=== PATIENT | male | born 1965 | race Hispanic/Latino ===

== ENCOUNTER 2024-12-17 06:13 | Day surgery (SDC) | payer MEDICARE ==
--- NOTE | 2024-12-16 11:59 | EKG ---
[facility] Test Date: 2024-12-16 Test Time: 12:54:30 Pat Name: ARUN GRIFFIN Department: [facility] Room: [facility] Gender: M Raise Drill Operator: [id number] : 1965 Requested By: ORION MARTINEZ Order Number: [id number] Reading MD: Carlos Vail Measurements Intervals [place] Rate: 64 P: 49 AR: 176 QRS: -4 QRSD: 96 T: 54 QT: 412 QTc: 425 Interpretive Statements Normal sinus rhythm No previous ECG available for comparison Electronically Signed On 12-17-2024 06:56:52 [employer]PER[employer]OR [employer]PER[employer] by Carlos Vail Please click the below link to view image of tracing.
[2024-12-16 12:05] LABS: BASOPHILS # (AUTO) 0.04 K/uL (0.00-0.20); BASOPHILS % (AUTO) 0.7 % (0.0-5.0); EOSINOPHILS # (AUTO) 0.13 K/uL (0.00-0.70); EOSINOPHILS % (AUTO) 2.2 % (0.0-8.0); IMMATURE GRANULOCYTE ABSOLUTE 0.01 K/uL (0-1); LYMPHOCYTES # (AUTO) 2.5 K/uL (1.0-4.8); LYMPHOCYTES % (AUTO) 42.6 % (21.0-51.0); MEAN CORPUSCULAR HEMOGLOBIN 31.6 pg (27.0-33.0); MEAN CORPUSCULAR HGB CONC 35.1 g/dL (32.0-36.0); MONOCYTES # (AUTO) 0.6 K/uL (0.1-1.0); MONOCYTES % (AUTO) 10.2 % (3.0-13.0); NEUTROPHILS # (AUTO) 2.6 K/uL (1.8-7.7); NEUTROPHILS % (AUTO) 44.1 % (40.0-77.0); PLATELET COUNT (AUTO) 262 K/uL (130-400); RED CELL DISTRIBUTION WIDTH 13.1 % (11.0-15.5); WHITE BLOOD COUNT (AUTO) 5.9 K/uL (4.8-10.8)
[2024-12-16 12:16] LABS: INR 0.97 (0.85-1.15); PROTHROMBIN TIME 10.9 SEC (9.6-11.6)
[2024-12-16 12:21] LABS: ALBUMIN 3.5 g/dL (3.5-5.0); BILIRUBIN,TOTAL 2.5 mg/dL (0.2-1.0); POTASSIUM 3.6 mmol/L (3.5-5.1); TOTAL PROTEIN, SERUM 7.8 g/dL (6.0-8.3)
[2024-12-16 12:48] VITALS: BP 110/66; PULSE 63; RESP 18; TEMP 97.7
[~2024-12-17] VITALS: Ht 167.6 cm; Wt 67.8 kg
[2024-12-17] VITALS (13 sets, daily range): BP systolic 105–143; BP diastolic 73–101; PULSE 65–87; RESP 15–20; TEMP 97.3–98
[2024-12-17] MEDS: LIDOCAINE HCL 1% 20 ML VIAL ONE
[2024-12-17] MEDS: BUPIvacaine/PF 0.25% 30ML VIAL IJ ONE
[~2024-12-17 06:13] MED LIST: ATAZ1TAB PO; ATOR10TA69 PO; EMTR1TAB23 PO; HYDR-4068 PO
[2024-12-17] MEDS: ceFAZolin SODIUM 2 GM VIAL ONE (07:05)
[2024-12-17] MEDS: LACTATED RINGERS 1000ML 1,000 ML IV ONE (07:05)
[2024-12-17] MEDS ORDERED: proPOFol 10 MG/ML 20ML VIAL IV ONE (07:40)
[2024-12-17] MEDS ORDERED: rocuRONium bROMide 10MG/1ML 5ML VL ONE (07:40)
[2024-12-17] MEDS ORDERED: MIDAZOLAM HCL 1 MG/ML 2ML VIAL ONE (07:40)
[2024-12-17] MEDS ORDERED: FENTanyl CITRate PF 50 MCG/1 ML 2ML VIAL ONE ×2 (07:40→08:32)
[2024-12-17] MEDS ORDERED: ondanSETRON 4MG INJ ONE (07:40)
[2024-12-17] MEDS ORDERED: SUCCINYLCHOLINE CHLORIDE 20 MG/ML 10 ML VIAL ONE (07:43)
--- NOTE | 2024-12-17 08:35 | OP ---
Operative Note: DATE OF PROCEDURE: 12/17/24 SURGEON: ORION MARTINEZ MD PERMIT AGENT: [None] ANESTHESIA: [General plus local] PREOPERATIVE DIAGNOSIS: [Anal genital condylomas.] POSTOPERATIVE DIAGNOSIS: [Same.] SYNOPSIS: [The patient with history of anal genital condylomas, symptomatic.] PROCEDURE: [Examination under anesthesia. Excision and fulguration of anal genital condylomas.] ESTIMATED BLOOD LOSS: [None] INDICATIONS: [This is 59-year-old male with a history of perianal and perigenital condylomas who presents with new lesions. Had surgery in the past years ago. Hemostasis lesions have been growing and bothering him quite a bit. After assessment he was offered an exam under anesthesia with excision and fulguration of anal condylomas.] DESCRIPTION OF PROCEDURE: [The patient was identified in the holding area transferred to the OR placed supine on the operative table. Venodyne boots were placed time-out conducted, IV antibiotics given. After general anesthesia was obtained was placed in lithotomy position with great care taken to pad all pressure points. His perineum was prepped and draped in the usual sterile fashion. Anal block was given with 1% lidocaine 0.25% Marcaine with epinephrine. Exam under anesthesia revealed a small intra-anal lesions. These were excised and passed to the back table. Perineal exam revealed multiple les ions, these were excised and fulgurated and passed to the back table as a specimen. Hemostasis checked and noted to be thorough. A sterile dressing was applied, there were no complications, all counts were correct. I was present and scrubbed for the entire case.] ORION GARNER MD Dec 17, 2024 08:35
== END 2024-12-17 10:04 | disposition home or self-care (01) ==
LOC: DAH 06:13
PROVIDERS: ATTEND Surgery
DX: A63.0 Anogenital (venereal) warts (principal); K21.9 Gastro-esophageal reflux disease without esophagitis; F41.9 Anxiety disorder, unspecified; F32.A Depression, unspecified; G47.00 Insomnia, unspecified; Z79.01 Long term (current) use of anticoagulants; Z79.899 Other long term (current) drug therapy
CPT/HCPCS: 80053; 85025; 85610; 85730; 36415; 93005; 46922; 88305; A6260; A4663; J7120 ×2; J3010 ×2; J0330; J0665; J3490; J2250; J2704; J2405; J0690; A4649 ×2; A4215; A4223; A4222; A4221

== ENCOUNTER 2025-08-05 07:25 | Day surgery (SDC) | payer MEDICARE, MEDICAID ==
[2025-08-04 11:02] LABS: IMMATURE GRANULOCYTE ABSOLUTE 0.02 K/uL (0-1); NUCLEATED RED BLOOD CELLS 0.0 % (0.0-0.19); PLATELET COUNT (AUTO) 241 K/uL (130-400); RED BLOOD CELL COUNT(AUTO) 5.02 MIL/uL (4.50-6.20); RED CELL DISTRIBUTION WIDTH 12.9 % (11.0-15.5); WHITE BLOOD COUNT (AUTO) 5.4 K/uL (4.8-10.8)
[2025-08-04 11:18] LABS: ASPARTATE AMINOTRANSFERASE 20.0 U/L (10-37); CREATININE 0.9 mg/dL (0.5-1.3); GLOMERULAR FILTR. RATE CALC 99.0 mL/min (>90); GLUCOSE,RANDOM 97.0 mg/dL (70-105); SODIUM SERUM 143.0 mmol/L (136-145); TOTAL PROTEIN, SERUM 7.8 g/dL (6.0-8.3); UREA NITROGEN, BLOOD 15.0 mg/dL (7-18)
[2025-08-04 11:23] LABS: INR 1.0 (0.85-1.15)
[2025-08-04 11:24] VITALS: BP 130/85; PULSE 60; RESP 12; TEMP 98.1
--- NOTE | 2025-08-04 12:20 | EKG ---
[facility] Test Date: 2025-08-04 Test Time: 10:50:01 Pat Name: ARUN GRIFFIN Department: [facility] Room: [facility] Gender: M Deblocker: [id number] : 1965 Requested By: LEENA DOE Order Number: [id number] Reading MD: Fely Ribeiro Measurements Intervals [place] Rate: 59 P: 29 NE: 180 QRS: 229 QRSD: 93 T: 64 QT: 402 QTc: 400 Interpretive Statements Sinus rhythm Probable lateral infarct, age indeterminate Compared to ECG 12/16/2024 12:54:30 Myocardial infarct finding now present Electronically Signed On 08-05-2025 16:11:16 CDT by Fely Ribeiro Please click the below link to view image of tracing.
[~2025-08-05] VITALS: Ht 170.2 cm; Wt 68.5 kg
[2025-08-05] VITALS (17 sets, daily range): BP systolic 104–148; BP diastolic 63–85; PULSE 55–69; RESP 14–17; TEMP 97–98.3
[~2025-08-05 07:25] MED LIST changes: +CETI10TA57 PO; +ESCI-8 PO; -HYDR-4068 PO; +VITA1CAP85 PO
[2025-08-05] MEDS: LACTATED RINGERS 1000ML 1,000 ML IV ONE (08:13)
[2025-08-05] MEDS ORDERED: MIDAZOLAM HCL 1 MG/ML 2ML VIAL ONE (09:36)
[2025-08-05] MEDS ORDERED: ACETIC ACID 0.25% TP ONE (10:00)
[2025-08-05] MEDS ORDERED: LIDOCAINE 1%-EPI 1:100,000 20 ML VIAL ONE (10:13)
[2025-08-05] MEDS ORDERED: STRONG IODINE SOLN 14ML BOTTLE ONE (10:19)
[2025-08-05] MEDS ORDERED: GLYCOPYRROLATE 0.2 MG/ML 5 ML VIAL ONE (10:43)
[2025-08-05] MEDS ORDERED: NEOSTIGMINE METHYLSULFATE 1MG/ML IV ONE (10:43)
[2025-08-05] MEDS ORDERED: FAMOTIDINE 20MG VIAL IV ONE (10:49)
--- NOTE | 2025-08-05 11:24 | OP ---
Operative Note: DATE OF PROCEDURE: 08/05/25 SURGEON: LEENA DOE MD REFERRAL NURSE: None ANESTHESIA: General ANESTHESIOLOGIST/PICTURE ENGRAVER: PICTURE ENGRAVER PREOPERATIVE DIAGNOSIS: Anal condyloma HIV POSTOPERATIVE DIAGNOSIS: As above PROCEDURE: High resolution anoscopy with anal canal biopsy Excision and fulguration of anal condyloma, simple ESTIMATED BLOOD LOSS: minimal INDICATIONS: Mr. Juares Is very ebhjkuuey-ljiy-ior male with known HIV and anal condyloma. An extensive excision of anal condyloma and as well, he was offered resolution anoscopy as part surveillance with excision of the remaining intragluteal condyloma. Complications, risk, alternative and benefits were explained to the patient including but not limited to infection, bleeding, injury to the sphincter leading to incontinence, recurrence of disease and need for additional procedures. The patient voiced understanding and wished to proceed with surgery. All of the patient's questions were answered to his satisfaction. DESCRIPTION OF PROCEDURE: After informed consent was obtained, the patient taken to the operating room and laid in the supine position. Once general anesthesia was obtained, the patient was carefully placed into lithotomy position. Next the perianal area was prepped and draped in the usual sterile fashion. Time out was performed confirming procedure. Next there was an obvious condylomatous lesion in the intragluteal region measuring approximately 7 x 5 mm in size. We carefully incised the skin in order to lift the condylomatous lesion and then excised it in an en bloc manner. Hemostasis was obtained of the wound bed. We sent this excision of this anal condyloma as intragluteal condyloma. We then carefully examined the perianal area which was unremarkable with healing wounds from his prior excision in November. There is no obvious condylomatous lesion at least if anoscope and there is an obvious condylomatous lesion in the right posterior anal canal. We placed Lugol solution over this area with Lugol's positive suggesting low-grade dysplasia. We excised this condyloma and send it to pathology as posterior midline anal condyloma. We completely fulgurated the area with electrocautery. We then placed Lugol solution into the anal canal and used the microscope to examine the mucosa. There was an area which had what appeared to be a mosaic pattern or and some thickening in the right posterior anal verge. This was also Lugol's positive. We obtained a biopsy and then completely excised and fulgurated this area with electrocautery. We then continued to examine the anal canal and there was an area with a mosaic pattern Lugol's positive in the right lateral anal canal. We obtain biopsies of this area and sent to pathology. We then completely fulgurated remaining abnormal tissue with electrocautery. Hemostasis was confirmed at all areas. There were no other significant abnormalities noted. We injected additional local anesthetic for postop antral. I got dressings applied. The patient tolerated procedure well sent to recovery in stable condition. Complications none Blood Loss minimal specimens: intragluteal condyloma, right posterior anal canal condyloma, posterior anal verge condyloma, right lateral anal condyloma LEENA DOE MD Aug 05, 2025 11:24
--- NOTE | 2025-08-05 12:05 | NUR ---
ASSESSMENT: NO RECTAL DRAINAGE NOTED. 4X4 GAUZE DRY/INTACT.
--- NOTE | 2025-08-05 12:35 | NUR ---
ASSESSMENT: 4X4 GAUZE FELL OFF WHILE USING THE BATHROOM. NO RECTAL DRAINAGE PRESENT
== END 2025-08-05 12:38 | disposition home or self-care (01) ==
LOC: DAH 07:25
PROVIDERS: ATTEND Surgery
DX: A63.0 Anogenital (venereal) warts (principal); K62.0 Anal polyp; K62.89 Other specified diseases of anus and rectum; B20 Human immunodeficiency virus [HIV] disease; F17.210 Nicotine dependence, cigarettes, uncomplicated; Z90.49 Acquired absence of other specified parts of digestive tract; Z83.3 Family history of diabetes mellitus; Z82.49 Family history of ischemic heart disease and other diseases of the circulatory system
CPT/HCPCS: 80053; 85025; 85610; 85730; 36415; 93005; 46922; 46607; 88305; A4223 ×2; A6260; A4663; J7030; J7120; J1308; J3010 ×2; J3490 ×4; J0665 ×2; J2250; J2704; J2405; J2710; J0690 ×2; A4649; A4930 ×2; A4215; A4213; A4222; A4221; A4216